=== PATIENT | male | born 1960 | race Caucasian/White ===

== ENCOUNTER → 2016-06-20 | Outpatient (CLI) | payer OTHER ==
[~2016-06-20] MED LIST: ALPR0.25 PO; ASCO100T4 PO; ASPI81TA50 PO; ATOR10TA60 PO; CARV6.252 PO; CELE200C PO; CLOP75TA PO; CYCL10TA2 PO; DULO30CA2 PO; DULO60CA6 PO; ESZO3TAB9 PO; GABA-586 PO; INSU100I13 SQ; INSU100V8 SQ; LOSA100T6 PO; LOSA50TA6 PO; MELO-156 PO; METF10002 PO; METO25TA9 PO; MULT-18 PO; NITR0.4T SL; OXYC-244 PO; OXYC-323 PO; OXYC30TA PO; PIOG30TA20 PO; SIMV40TA3 PO; SITA100T PO; TEST75PE6 IL; TIZA4CAP PO; VALS1TAB6 PO
--- NOTE | 2016-06-20 16:02 | PAIN ---
DATE OF SERVICE: 06/20/2016 PROGRESS NOTE DIAGNOSES: Lumbar radiculopathy with lumbar degenerative disk disease and post-lumbar laminectomy syndrome. HISTORY OF PRESENT ILLNESS: The patient is a 55-year-old male who returns for followup status post medication management with oxycodone. The patient is taking a fourth to a half of a tablet at a time during the day, only taking 50 tablets per month. We have been working on him for several months now with decreasing his rate and decided that we will continue this as well, decreasing the amount that he is taking even though it is not a large amount. The patient would like to be off these as well as he feels that it make him somewhat fatigued and tired in combination with his blood pressure medication and Cymbalta. The patient reports otherwise doing fairly well, good control of pain in his low back and left hip and leg, about 80% decreased with the medication and without side effects. The patient reports it is about 3 on a scale of 10 at its worse, is aching and throbbing. He has had quite a bit of stress at work as he usually does and we discussed this in some detail today as well as, biofeedback mechanisms, stretching and meditations, which he is doing all of these. Also, the patient is still seeing Dr. Tushar Zhang at the [facility], which he feels has been very helpful with psychological decrease in dependency on the pain medicine as well. The patient reports otherwise no new motor or sensory deficits, no new bowel or bladder incontinence. No side effects with medication. The patient has had appropriate K-TRACS reporting and appropriate urinalysis to date as well. We will get a urinalysis today on routine screening once again. The patient's old chart was reviewed as his current medication regimen updated. Current review of systems updated today as well. PHYSICAL EXAMINATION: VITAL SIGNS: The patient's blood pressure is 134/83, pulse is 75, respirations 18, temperature 97.7 degrees Fahrenheit, height is 5 feet 11 inches, and weighs 228 pounds. GENERAL: The patient is awake, alert, oriented, appropriate, very pleasant demeanor. HEENT: Shows normocephalic, atraumatic. NECK: Shows anterior throat supple without palpable lymphadenopathy noted. Swallow reflex is symmetrical. CHEST: Shows normal on inspection. Breath sounds are clear to auscultation bilaterally. HEART: Shows S1 and S2 clear. ABDOMEN: Soft, nontender, and nondistended. BACK: Shows midline spine with well-healed surgical scar in the lumbar distribution. There is some moderate tenderness with palpation in the lumbar paraspinous musculature bilaterally, but without significant radiation. EXTREMITIES: The patient's lower extremities show deep tendon reflexes 1+ in the patellar tendons. Motor exam is strong with 5/5 dorsiflexion, extension and equal. PLAN: Options were discussed with the patient. We will refill the patient's oxycodone at 50 tablets per month for 2 months periods, once again the patient was instructed as to decreasing the amount of medication, a small amount currently and he would like to be off these completely eventually and we will work with him to get this reduced further. 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 The patient will follow up in approximately 2 months or sooner if necessary and was given instruction as well as side effects to be aware with his medications. MANUEL MICHAEL MD DR: EDWAR/víctor JOB#: [id number] / [id number]
== END | disposition home or self-care (01) ==
LOC: PNCL 07:38
PROVIDERS: ATTEND Anesthesiology
DX: M51.16 Intervertebral disc disorders with radiculopathy, lumbar region (principal); M96.1 Postlaminectomy syndrome, not elsewhere classified
CPT/HCPCS: 99212

== ENCOUNTER → 2016-08-15 | Outpatient (CLI) | payer OTHER ==
[~2016-08-15] MED LIST changes: +IOHEXOL 180 MG/ML 10 ML VIAL. ONE; -VALS1TAB6 PO; +VALS1TAB8 PO; +methylPREDNISolone ACETATE 40 MG/ML VIAL. ONE; +methylPREDNISolone ACETATE 80 MG/ML VIAL. ONE
--- NOTE | 2016-08-16 00:28 | PAIN ---
DATE OF SERVICE: 08/15/2016 DIAGNOSES: Lumbar radiculopathy with lumbar degenerative disk disease and lumbar post-laminectomy syndrome. HISTORY OF PRESENT ILLNESS: The patient is a 55-year-old male who returns for followup status post medication management with oxycodone 5 mg, the patient has been breaking the tablets in half to fourth with good results, still having some emotional stress and anxiety which is causing his physical pain to be slightly increased, but is doing better overall with breaking the tablets down and trying to take less and less. The patient did have good week about 2 weeks ago, he reports, where he only needed to take one to one and half tablets a day and was very pleased with this, but has had some increased stress at work again lately and has been going back up to two to two and half tablets on occasion. The patient reports he is still interested in doing physical therapy, which he has been doing. We did get him some new orders today to follow up with this, as he would like to get in to some weight loss program as well. He is still seeing Dr. Tushar Zhang for some emotional support and counseling and reports that this is effective and helpful also. The patient reports no new motor or sensory deficits. He is still complaining of pain in the low back and left lower extremity, mostly in the posterior gluteus and thigh, intermittent in intensity, but present. The patient rates his pain as a 2 on a scale of 10, described as aching and dull with some radiating pain in the neck and worse with physical activity, worse with emotional stress. PHYSICAL EXAMINATION: VITAL SIGNS: The patient's blood pressure 123/75, pulse 75, respirations 18, temperature 98.1 degrees Fahrenheit, height is 5 feet 11 inches, weight is 222 pounds. GENERAL: The patient is awake, alert, oriented, appropriate, has very pleasant demeanor. HEENT: Shows normocephalic, atraumatic. Extraocular movements are intact and symmetrical. Oral cavity shows mucous membranes are moist and pink. Dentition is intact. NECK: Shows anterior throat supple without palpable lymphadenopathy noted. Swallow reflex is symmetrical. CHEST: Shows normal on inspection. Breath sounds are clear to auscultation bilaterally. HEART: Shows S1 and S2 clear. No murmurs are auscultated. ABDOMEN: Obese, soft, nontender, nondistended. No palpable organomegaly is noted. No rebound or guarding demonstrated. BACK: The patient's back shows spine grossly in the midline, well-healed surgical scars noted in the lumbar distribution and lumbar paraspinous musculature symmetrical in appearance. With palpation, muscle girth is normal with no specific radiation and no trigger points. No tenderness over the sacrum or sacroiliac regions. The patient shows good rotational motion of the lumbar spine both laterally as well as extension and flexion without significant pain reported. EXTREMITIES: Lower extremities showed deep tendon reflexes at 1+ in the patellar and tendo calcaneus tendons are equal. Motor exam is strong with 5/5 dorsiflexion and extension. PLAN: Options were discussed with the patient and the patient's old chart was reviewed as his current medication regime and updated. Current review of systems updated today as well and refilled the patient's oxycodone at 5 mg to take up to 5 tablets if necessary; however, the patient has been breaking them down, we discussed in great detail reducing the amount of medication and using them as sparingly as possible, although he is on a low dose of this, he would like to be off them completely eventually, and we will continue to work with him in this regard. Also, we will send physical therapy orders for strengthening and stretching exercises, posture retraining, muscular retraining in the back and core as well and some weight loss advice as the patient is interested in this as well. We will have the patient follow up in 90 days or sooner if necessary. The patient is given prescription for 90 days with instructions and side effects of the medication to be aware of. Also, we discussed testosterone levels, the patient has been following this up significantly and consistently with his primary care physician and does get some testosterone injections and will follow up with his primary care physician regarding some increased fatigue he has been having lately as well. MANUEL MICHAEL MD DR: EDWAR/víctor JOB#: [id number] / [id number]
== END | disposition home or self-care (01) ==
LOC: PNCL 07:39
PROVIDERS: ATTEND Anesthesiology
DX: M51.16 Intervertebral disc disorders with radiculopathy, lumbar region (principal); M96.1 Postlaminectomy syndrome, not elsewhere classified
CPT/HCPCS: 99212; J1030; J1040

== ENCOUNTER → 2016-11-11 | Outpatient (CLI) | payer OTHER ==
[~2016-11-11] MED LIST changes: -IOHEXOL 180 MG/ML 10 ML VIAL. ONE; +METF-620 PO; -METF10002 PO; -methylPREDNISolone ACETATE 40 MG/ML VIAL. ONE; -methylPREDNISolone ACETATE 80 MG/ML VIAL. ONE
--- NOTE | 2016-11-12 04:14 | PAIN ---
DATE OF SERVICE: PROGRESS NOTE FOR PAIN CLINIC DIAGNOSES: Lumbar radiculopathy with lumbar degenerative disk disease and post-lumbar laminectomy syndrome. HISTORY OF PRESENT ILLNESS: The patient is a 56-year-old male, who returns for followup status post medication management with oxycodone at 5 mg. The patient is taking between one and a half and one and three-quarter tablets each 4-6 hours depending on his pain level at home. The patient has been doing this for some time now. We have weaned him down to just 50 tablets a month and he is doing a good job of breaking these in the halves and quarters, to take only sparingly as he can; however, he reports that he has had a significantly painful last month or so. He had a new riding insole tape stitcher uco, which aggravated his back pain significantly. He also does some ____, which is aggravating the back and was in one of his coworkers' vehicles when she____ had a very stiff suspension and this aggravated his back pain as well. He is having traveling pain down his left hip and leg, as well as in the left groin and into the scrotal region as well - somewhat of that when he had prior to his lumbar surgery. The patient reports that it is not there constantly, but it is becoming much more aggravating and he is afraid to do any type of activity currently because that the pain has returned. The patient reports no deficits, but significant pain in the back and left leg as he has had previously with a radiating fashion. The patient reports otherwise with his pain medication, he does well when he takes it with about 80% or better improvement, although he is struggling with the idea that he is more psychologically dependent on the pain medication and physically, it does relieve the pain by his report to a significant extent. The patient also sees Dr. Tushar Zhang at [facility] and he is following up with him on 11/14/2016 in approximately 3 days as well. The patient has been seeing a physical therapist and doing some core exercise, strengthening, and stretching, which he reports seems to help the pain, but only temporarily. PHYSICAL EXAMINATION: VITAL SIGNS: Today, the patient's blood pressure is 126/81, pulse 85, respirations 20, temperature 98.0 degrees Fahrenheit. Height is 5 feet 11 inches and weight is 222 pounds. GENERAL: The patient is awake, alert, oriented, and appropriate and has a very pleasant demeanor. HEENT: Head shows normocephalic, atraumatic. Extraocular movements are intact and symmetrical. Oral cavity - mucous membranes are moist and pink. Dentition is intact. NECK: Shows anterior throat supple without palpable lymphadenopathy noted. Swallow reflex is symmetrical. CHEST: Shows normal on inspection. Breath sounds are clear to auscultation bilaterally. HEART: Shows S1 and S2 clear. No murmurs auscultated. ABDOMEN: Obese, soft, nontender, and nondistended. No palpable organomegaly is noted. No rebound or guarding demonstrated. BACK: Shows spine grossly midline. Normal-appearing thoracic kyphosis. Lumbar lordotic curvature is mildly flattened with some previously well-healed surgical scarring noted. Lumbar paraspinous musculature shows symmetrical on inspection. With palpation, shows moderate tenderness throughout the upper, middle and lower distributions with very firm musculature bilaterally, more so than on previous exam with very tight musculature, which is moderately tender, but only diffusely and without radiation throughout. No tenderness over the spinous processes, sacrum, or sacroiliac regions. The patient does show good rotational motion both laterally, as well as extension and flexion without significant increase in pain in the lumbar spine. EXTREMITIES: Lower extremities show deep tendon reflexes at 1+ in the patellar and tendocalcaneus tendons. Motor exam remain strong with 5/5 dorsiflexion, extension, quadriceps, and hamstring flexion. PLAN: Options were discussed with the patient. The patient's old chart was reviewed and his current medication regimen was updated. Current review of systems updated today as well. We will refill the patient's oxycodone at 5 mg with only 50 tablets per month for the next 2 months. Also discussed that he has had two Medrol Dosepaks from his primary care physician in the last 6-7 weeks, and while it has helped significantly initially, the pain returns once these are completed. We will increase his Celebrex to twice daily for the next 1 week and also increase his gabapentin to 300 mg twice daily. The patient was given instruction as well as side effects to be aware of with all his medications and will follow up in approximately 2 months or sooner if necessary. We did discuss the possibility of a caudal epidural steroid injection if the radicular pain remains after the next week with medication increase and he will call the clinic to notify us if that is the case next week. MANUEL MICHAEL MD DR: EDWAR/nts JOB#: [id number] / [id number]
== END | disposition home or self-care (01) ==
LOC: PNCL 11:19
PROVIDERS: ATTEND Anesthesiology
DX: M51.16 Intervertebral disc disorders with radiculopathy, lumbar region (principal); M96.1 Postlaminectomy syndrome, not elsewhere classified
CPT/HCPCS: 99212

== ENCOUNTER → 2016-12-30 | Outpatient (CLI) | payer OTHER ==
[~2016-12-30] MED LIST changes: +ESZO3TAB28 PO; -ESZO3TAB9 PO; -MELO-156 PO; +MELO7.5T29 PO; -OXYC-244 PO; +OXYC-327 PO; -PIOG30TA20 PO; +PIOG30TA41 PO
--- NOTE | 2016-12-31 02:23 | PAIN ---
DATE OF SERVICE: 12/30/2016 PROGRESS NOTE FOR PAIN CLINIC DIAGNOSES: Lumbar radiculopathy with lumbar degenerative disk disease and post lumbar laminectomy syndrome. HISTORY OF PRESENT ILLNESS: The patient is a 56-year-old male who returns for followup status post medication management with oxycodone. We have been reducing his amount daily and he has been cutting the pills into fourths and halves, taking about 1-1/2 tablets a day on average. The patient reports he has been trying to get it down and he wants to get the medication out of his regimen for good eventually. The patient reports he is still seeing Dr. Zhang for some psychosocial counseling and pain management as well and he reports that he does feel that this is helpful. The patient reports his pain is about a 5 on a scale of 10 at the worst, and a 3 on an average, it is a 3 today. The patient reports it is in the low back radiating to the posterior gluteus, posterior thigh, is aching and constant. The patient reports he is sleeping well at night, however. He is feeling much better with sitting or lying down. It is worse when he is on his feet, walking or standing for more than about 30-40 minutes. The patient reports otherwise it is somewhat tolerable with the medication, reports about a 75% improvement with the medication itself, again wishing to decrease the amount taken. PHYSICAL EXAMINATION: VITAL SIGNS: Today, blood pressure 122/84, pulse 67, respirations 18, temperature 97.7 degrees Fahrenheit, height is 5 feet 11 inches, weighs 227 pounds. GENERAL: The patient is awake, alert, oriented, appropriate, very pleasant demeanor. HEENT: Head is normocephalic, atraumatic. Extraocular movements are intact, symmetrical. Oral cavity, mucous membranes are moist and pink. Dentition is intact. NECK: Shows anterior throat supple without palpable lymphadenopathy noted. Swallow reflex is symmetrical. CHEST: Shows normal on inspection. Breath sounds are clear to auscultation bilaterally. HEART: Shows S1 and S2 clear. No murmurs auscultated. BACK: The patient's back shows spine grossly in the midline. Well-healed surgical scars noted in the lumbar distribution. The patient shows no tenderness over the sacrum and sacroiliac regions, but shows good rotation and motion both laterally as well as extension and flexion of lumbar spine without difficulty. EXTREMITIES: Lower extremities, showed deep tendon reflexes 1+ in the patellar and tendo calcaneus tendons are equal. Motor exam is strong with 5/5 dorsiflexion, extension, quadriceps and hamstring flexion. Pulses are 1+ posterior tibial and dorsalis pedis pulses. Options were discussed with the patient. The patient's old chart was reviewed as his current medication regimen updated. Current review of systems updated today as well. We will decrease the patient's monthly amount of medications to 40 tablets instead of 50. The patient will divide these up again and we will slowly wean this down. We will have him return in about 60 days and plan on further reduction at that time. The patient was counseled as to medication regimen as well as side effects to be aware of and follow up as scheduled. MANUEL MICHAEL MD DR: EDWAR/víctor JOB#: [id number] / [id number]
== END | disposition home or self-care (01) ==
LOC: PNCL 10:42
PROVIDERS: ATTEND Anesthesiology
DX: M54.16 Radiculopathy, lumbar region (principal); M47.896 Other spondylosis, lumbar region; M96.1 Postlaminectomy syndrome, not elsewhere classified
CPT/HCPCS: 99212

== ENCOUNTER → 2017-02-24 | Outpatient (CLI) | payer OTHER ==
[~2017-02-24] MED LIST changes: +LINA5TAB4 PO; +METO-239 PO; -METO25TA9 PO
--- NOTE | 2017-02-24 16:45 | PAIN ---
DATE OF SERVICE: 02/24/2017 DIAGNOSES: Lumbar radiculopathy with lumbar degenerative disk disease and lumbar post-laminectomy syndrome. HISTORY OF PRESENT ILLNESS: The patient is a 56-year-old male who returns for followup status post medication management with oxycodone 5 mg. The patient has been taking the medication and breaking them down into a fourth or halves and only taking 40 tablets total each month. We have been trying to wean him down. He is still having some difficulty with this and is very self aware that he is mostly psychologically dependent on these and we have discussed this in much detail. He has also seen Dr. Ashvin Zhang for some biofeedback and psychiatric control and has another psychiatrist working with depression issues with the patient. The patient reports that otherwise, he is still having some pain in low back radiating to the posterior gluteus in left side and left leg, although it is a 5 on a scale of 10 at its worst, 3 on average, and a 1 on a scale of 10 at its least and is 1 today. The patient reports it can be a sharp pain, but it is only mainly dull and aching in the low back and left leg. The patient reports no new motor or sensory deficits. No new bowel or bladder incontinence or other complaints. PHYSICAL EXAMINATION: VITAL SIGNS: Today, the patient's blood pressure is 134/86, pulse 65, respirations 18, temperature 97.8 degrees Fahrenheit, height is 5 feet 11 inches, weighs 225 pounds. GENERAL: The patient is awake, alert, oriented, appropriate, very pleasant demeanor. HEENT: Head shows normocephalic, atraumatic. Extraocular movements are intact and symmetrical. Oral cavity, mucous membranes are moist and pink. Dentition is intact. NECK: Shows anterior throat supple without palpable lymphadenopathy noted. Swallow reflex is symmetrical. CHEST: Shows normal on inspection. Breath sounds are clear to auscultation bilaterally. HEART: Shows S1 and S2 clear. ABDOMEN: Soft, obese, nontender, nondistended. BACK: Shows spine grossly in midline. Well healed surgical scar is noted in the lumbar distribution. Lumbar paraspinous musculature shows some moderate tenderness to palpation, but only diffusely without radiation. Lower extremities show deep tendon reflexes at 1+ in the patellar and tendo calcaneus tendons. Motor exam is strong with 5/5 dorsiflexion and extension. Options were discussed with the patient and the patient's old chart was reviewed as his current medication regimen and updated. Current review of systems is updated today as well. We will maintain #40 tablets of oxycodone 5 mg for 1 month prescription x 2 months written. The patient was counseled again as to decreasing the medication and we talked about various other techniques. He is currently doing yoga, which he feels is helpful and we will eventually substitute these other modalities and physical therapies biofeedback for the pain medication itself as the patient appears dedicated in doing this. He has also had appropriate K-TRACS reporting today and appropriate urinalysis to date. Again encouraged him to maintain his hydration with medication and diet, also talked about weight loss. He has been doing some pool exercises as well and encouraged him to continue with these also. The patient will follow up in approximately 2 months or sooner as necessary. MANUEL MICHAEL MD DR: EDWAR/víctor JOB#: [id number] / [id number]
== END | disposition home or self-care (01) ==
LOC: PNCL 11:16
PROVIDERS: ATTEND Anesthesiology
DX: M51.16 Intervertebral disc disorders with radiculopathy, lumbar region (principal); M96.1 Postlaminectomy syndrome, not elsewhere classified; F32.9 Major depressive disorder, single episode, unspecified
CPT/HCPCS: 99212

== ENCOUNTER → 2017-04-21 | Outpatient (CLI) | payer OTHER ==
--- NOTE | 2017-04-24 10:08 | PAIN ---
DATE OF SERVICE: 04/21/2017 DIAGNOSES: Lumbar radiculopathy with lumbar degenerative disk disease and post-lumbar laminectomy syndrome. HISTORY OF PRESENT ILLNESS: The patient is a 56-year-old male who returns for followup status post medication management with oxycodone at 5 mg. The patient has been working on decreasing the medication, is doing a very good job, trying to get down. He is also doing some psychiatric counseling as well as physical therapies and started yoga since his last visit and reports he is doing quite well. He still breaking the tablets into halves and fourths and taking up to 1-1/2 tablets a day at maximum. The patient reports he has had several episodes where he was able to skip one of the quarter or half tablet doses and he feels good about this as he knows he has some psychological component to the medication need and desire and we have been working with him to very slowly reduce this and he is so far coming along with good progress. The patient reports no side effects with medication and his pain is pretty well controlled approximately 75% or so with the medication, but again would like to get off of this and we will help him achieve this goal. The patient reports still some pain in the low back, bilateral lower extremities, more so on the left side. Rates as a 4 on a scale of 10 at its worst, 2 on average and a 2 at its least and is a 2 today. The patient reports it as aching and dull. Can be radiating, but usually just dull, aching across the low back, sometimes tight, but rarely with a shooting pain. The patient reports it feels worse with standing, walking, changing positions, sitting upright for more than about an hour or so, but better with lying down and generally with sitting, it relieved to some extent. In anyway, the patient sleeps full at night. Does not awaken him from sleep. Reports no new motor or sensory deficits, no new bowel or bladder incontinence or other complaints. No side effects with the medication. PHYSICAL EXAMINATION: VITAL SIGNS: The patient's blood pressure is ____, respirations are 16, temperature is 98.2 degrees Fahrenheit. Height is 5 feet 11 inches, weight is 227 pounds. GENERAL: The patient is awake, alert, oriented, appropriate, very pleasant demeanor. HEENT: Shows normocephalic, atraumatic. Extraocular movements are intact and symmetrical. Oral cavity shows mucous membranes are moist and pink. Dentition is intact. NECK: Shows anterior throat is supple without palpable lymphadenopathy noted. Swallow reflex is symmetrical. CHEST: Shows normal with inspection. Breath sounds are clear to auscultation bilaterally. HEART: Shows S1 and S2 clear. No murmurs auscultated. ABDOMEN: Soft, nontender, nondistended. No palpable organomegaly is noted. No rebound or guarding demonstrated. MUSCULOSKELETAL: Back shows spine grossly in the midline. Normal appearing thoracic kyphosis, mild flattening of lumbar lordotic curvature. Well-healed surgical scar in the lumbar distribution. Lumbar paraspinous muscles show symmetrical on inspection, with palpation shows some moderate tenderness but only diffusely in the lower lumbar distribution and only to a mild to moderate extent. No radiation of pain, no tenderness over the sacrum or sacroiliac regions. Lower extremities show deep tendon reflexes at 1+ in the patellar and tendo-calcaneus tendons and are equal. Motor exam is strong with 5/5 dorsiflexion, extension, quadriceps and hamstring flexion. Peripheral pulses are 1+, posterior tibial. No peripheral edema is noted bilaterally in the lower extremities. PLAN: Options were discussed with the patient and the patient's old chart was reviewed as his current medication regimen updated. Current review of systems updated today as well and we will refill the patient's medication oxycodone 5 mg at 40 tablets for a month with a 2-month prescription given. The patient was given instruction as well as side effects to be aware of with medication, again actively work on reducing the medication amount and increase activity with yoga and physical therapy exercises, which he is currently doing. The patient will follow up in approximately 2 months as scheduled or sooner if necessary. MANUEL MICHAEL MD DR: EDWAR/víctor JOB#: [id number] / [id number]
== END | disposition home or self-care (01) ==
LOC: PNCL 10:45
PROVIDERS: ATTEND Anesthesiology
DX: M51.16 Intervertebral disc disorders with radiculopathy, lumbar region (principal)
CPT/HCPCS: 99212

== ENCOUNTER → 2017-06-16 | Outpatient (CLI) | payer OTHER | END | disposition home or self-care (01) | LOC: PNCL 11:00 | DX: M51.16 Intervertebral disc disorders with radiculopathy, lumbar region (principal) | CPT/HCPCS: 99212 ==

== ENCOUNTER → 2017-08-11 | Outpatient (CLI) | payer OTHER | END | disposition home or self-care (01) | LOC: PNCL 10:56 | DX: M51.16 Intervertebral disc disorders with radiculopathy, lumbar region (principal) | CPT/HCPCS: 99212 ==

== ENCOUNTER → 2017-10-13 | Outpatient (CLI) | payer OTHER | END | disposition home or self-care (01) | LOC: PNCL 07:54 | DX: M51.16 Intervertebral disc disorders with radiculopathy, lumbar region (principal) | CPT/HCPCS: 99212 ==

== ENCOUNTER → 2017-12-28 | Outpatient (CLI) | payer OTHER | END | disposition home or self-care (01) | LOC: PNCL 07:32 | DX: M51.16 Intervertebral disc disorders with radiculopathy, lumbar region (principal); F32.9 Major depressive disorder, single episode, unspecified | CPT/HCPCS: 99212 ==

== ENCOUNTER → 2018-02-08 | Outpatient (CLI) | payer OTHER ==
[~2018-02-08] MED LIST changes: -METF-620 PO; +METF10003 PO
--- NOTE | 2018-02-08 11:30 | PAIN ---
DATE OF SERVICE: 02/08/2018 PROGRESS NOTE FOR PAIN CLINIC DIAGNOSES: Lumbar radiculopathy with lumbar degenerative disk disease and post-lumbar laminectomy syndrome. HISTORY OF PRESENT ILLNESS: The patient is a 57-year-old male who returns for followup status post medication management and physical therapy for his low back and left lower extremity pain. HISTORY OF PRESENT ILLNESS: The patient reports he has been doing fairly well. He did see an outside pain treatment facility and had a lumbar epidural steroid injection, which he reports was not helpful as about 2 weeks ago, the patient reports he also had a myelogram, which he has report with him today showing no significant change from exam of 2013 with some end-plate osteophytic ridging extending in the medial left neural foramen at L5-S1 with facet spurring but again similar to prior exam without significant change. The patient reports still some pain in the low back and left leg but it only worked occasionally. The patient reports it is better with the therapies, has been doing some water therapy as well as regular physical therapy, stretching and strengthening and some yoga exercises, which seemed to help but still having some significant pain. The patient reports the pain is a 5 on a scale of 10 at its worst, 3 on average, 1 at its least and is a 3 today. The patient reports it is a burning, aching, radiating, becoming more constant with activity. The patient reports no loss of motor function and no bowel or bladder incontinence or other complaints. PHYSICAL EXAMINATION: VITAL SIGNS: The patient's blood pressure is 117/78, pulse 83, respirations 18, temperature 97.8 degrees Fahrenheit, 5 feet 11 inches and weight is 214 pounds. GENERAL: The patient is awake, alert, oriented, appropriate, very pleasant demeanor. HEENT: Head shows normocephalic and atraumatic. Extraocular movements are intact and symmetrical. Oral cavity: Mucous membranes moist and pink. Dentition is intact. NECK: Shows anterior throat supple without palpable lymphadenopathy noted. Swallow reflex symmetrical. CHEST: Shows normal on inspection. Breath sounds clear to auscultation bilaterally. HEART: Shows S1 and S2 clear. No murmurs auscultated. ABDOMEN: Obese, soft, nontender and nondistended. No palpable organomegaly is noted. No rebound or guarding demonstrated. BACK: The patient's back shows spine grossly in the midline, slight flattening of the lumbar lordotic curvature with some mild flattening and well-healed surgical scarring noted. Lumbar paraspinous muscle shows symmetrical on inspection, on palpation shows some moderate tenderness bilaterally, only diffusely without radiation. The patient has good rotational motion both laterally as well as extension and flexion without significant pain reported. No tenderness over the sacrum or sacroiliac regions. EXTREMITIES: Lower extremities show deep tendon reflexes 1+ in the patellar and tendo-calcaneus tendons. Motor exam is approximately 4 on a scale 5 but symmetrical and equal with dorsiflexion, extension, quadriceps and hamstring flexion. Peripheral pulses are 1+ posterior tibia. No peripheral edema is noted bilaterally. Options were discussed with the patient. The patient's old chart was reviewed as well as his current medication regimen updated. Current review of systems updated today as well and we will continue with physical therapy recommendations. Also, we discussed weight loss strategies with the patient. He will continue with these as well. We also discussed possible interventional techniques although he just had another injection without significant improvement. We would like to hold on this and also we discussed possible neurosurgical evaluation but without significant change or without any motor loss or increasing portion of pain is a bit early to discuss surgical options and he would like to wait on this as long as possible. We will continue to encourage him to maintain physical therapy, water therapy especially and weight loss techniques as well. The patient will follow up at this time on as needed basis. MANUEL MICHAEL MD DR: EDWAR/víctor JOB#: [id number] / [id number]
== END | disposition home or self-care (01) ==
LOC: PNCL 07:34
PROVIDERS: ATTEND Anesthesiology
DX: M51.16 Intervertebral disc disorders with radiculopathy, lumbar region (principal)
CPT/HCPCS: 99212

== ENCOUNTER → 2018-08-29 | Outpatient (CLI) | payer OTHER ==
[~2018-08-29] MED LIST changes: +CARV6.2511 PO; -CARV6.252 PO; -GABA-586 PO; +GABA300C18 PO; +LINA5TAB PO; -LINA5TAB4 PO; +LOSA-73 PO; +LOSA100T14 PO; -LOSA100T6 PO; -LOSA50TA6 PO; -METF10003 PO; +METF10007 PO; -OXYC-323 PO; -OXYC-327 PO; +OXYC1TAB15 PO; +OXYC1TAB19 PO; -OXYC30TA PO; +OXYC30TA3 PO
--- NOTE | 2018-08-29 15:22 | PAIN ---
DATE OF SERVICE: 08/29/2018 DIAGNOSES: Lumbar radiculopathy with lumbar degenerative disk disease and lumbar post-laminectomy syndrome. HISTORY OF PRESENT ILLNESS: The patient is a 57-year-old male who returns for followup status post previous medication management and therapy. The patient was last seen 02/08/2018. The patient reports he has been doing fairly well, but his right knee is causing him significant pain. He has had some meniscus worked on in the past and has not had a followup with his orthopedist in some time. The patent reports his pain in back has exacerbated significantly and appears to be worse with walking and standing, better with sitting or lying down. The patient reports it is in the low back, radiating to the mid back, upper back with muscular component as well as the spasticity, is still taking muscle relaxant as well as Celebrex, which does help, but only to about 30% level. The patient reports he has some dry needling done with his physical therapy and continues some physical therapy, but no pool therapy lately. The patient reports it is an aching pain shooting and seems to be getting worse. The patient reports it is a 7 on a scale of 10 at its worst, 4 on average and 3 at its least and is a 4 today. The patient reports no new motor or sensory deficits, better with lying down, does not awaken him from sleep at night. PHYSICAL EXAMINATION: VITAL SIGNS: The patient's blood pressure 122/81, pulse 81, respirations 18, temperature 97.9 degrees Fahrenheit. Height is 5 feet 11 inches, weight is 205 pounds. GENERAL: The patient is awake, alert, oriented, appropriate, very pleasant demeanor. HEENT: Head is normocephalic, atraumatic. Extraocular movements are intact and symmetrical. Oral cavity: Mucous membranes moist and pink. Dentition intact. NECK: Shows anterior throat supple without palpable lymphadenopathy noted. Swallow reflex symmetrical. CHEST: Shows normal with inspection. Breath sounds clear to auscultation bilaterally. HEART: Shows S1, S2 clear. No murmurs auscultated. ABDOMEN: Soft, nontender, nondistended. No palpable organomegaly is noted. No rebound or guarding demonstrated. BACK: Shows spine grossly in the midline. Normal appearing thoracic kyphosis and some minor flattening of lumbar lordotic curvature. Well-healed surgical scar noted. Lumbar paraspinous muscle shows symmetrical on inspection, on palpation shows some moderate tenderness in the low lumbar distribution, but only diffusely without radiation. The patient shows good rotational motion of lumbar spine, both laterally as well as extension and flexion without significant difficulty. EXTREMITIES: The patient's lower extremities show deep tendon reflexes 1+ in the patellar and tendo calcaneus tendons. Motor exam is strong with approximately 4 on a scale of 5, but equal and symmetrical dorsiflexion, extension, quadriceps and hamstring flexion bilaterally. Peripheral pulses are 1+ posterior tibia. No peripheral edema is noted. The patient's right knee shows some moderate tenderness with palpation, mainly the component over the medial collateral ligament, but also over the inferior patellar tendons as well. The patient has good range of motion, however, without ratcheting or crepitus of the joint with range. Options were discussed with the patient. The patient's old chart was reviewed, as his current medication regimen updated. Current review of systems updated today as well, and we will refer the patient for orthopedic evaluation for a second opinion regarding his right knee and any interventional techniques that may be required or necessary. Also, we will try Flector patch on the right knee itself. The patient was given instruction as well as side effects to be aware of with the medication. The patient will follow up in approximately 1 month or sooner if necessary. The patient was given instruction as well as side effects to be aware of with the patch and will follow up as scheduled. MANUEL MICHAEL MD DR: EDWAR/víctor JOB#: [id number] / [id number]
== END | disposition home or self-care (01) ==
LOC: PNCL 08:40
PROVIDERS: ATTEND Anesthesiology
DX: M51.16 Intervertebral disc disorders with radiculopathy, lumbar region (principal); M96.1 Postlaminectomy syndrome, not elsewhere classified
CPT/HCPCS: G0463

== ENCOUNTER → 2019-02-26 | Outpatient (CLI) | payer OTHER ==
--- NOTE | 2019-02-26 09:12 | PAIN ---
DATE OF SERVICE: 02/26/2019 PROGRESS NOTE FOR PAIN CLINIC DIAGNOSES: Lumbar radiculopathy with lumbar degenerative disk disease and lumbar post-laminectomy syndrome. HISTORY OF PRESENT ILLNESS: The patient is a 58-year-old male who returns for followup, last seen on 08/29/2018. We tried some water therapy and physical therapy. The patient reports he did well with this, but the pain is returning after Labor Day weekend. He was doing some mowing and weed-eating for extended period and has some increased pain in the low back and into his left posterior hip and radiating into the gluteus and thigh. The patient reports it is worse with walking, standing, and changing positions, is a tight and constant pain in the low back, helped with muscle relaxers, also with stretching and ice application. The patient reports the pain is 7 on a scale of 10 at its worst over the past week, 5 on average, 4 at its least and is a 5 today. The patient reports no new motor or sensory deficits, no new changes. PHYSICAL EXAMINATION: VITAL SIGNS: The patient's blood pressure 120/64, pulse 68, respirations 18, temperature 98.0 degrees Fahrenheit. Height is 5 feet 11 inches, weight is 205 pounds. GENERAL: The patient is awake, alert, oriented, appropriate, very pleasant demeanor. HEENT: Head is normocephalic, atraumatic. Extraocular movements are intact and symmetrical. Oral cavity: Mucous membranes are moist and pink. Dentition is intact. NECK: Shows anterior throat is supple without palpable lymphadenopathy noted. Swallow reflex symmetrical. CHEST: Shows normal on inspection. Breath sounds are clear to auscultation bilaterally. HEART: Shows S1, S2 clear. No murmurs auscultated. ABDOMEN: Soft, nontender, nondistended. No palpable organomegaly is noted. No rebound or guarding demonstrated. BACK: Shows spine grossly in the midline. Normal appearing thoracic kyphosis and minor flattening of lumbar lordotic curvature. Well-healed midline surgical scar. Lumbar paraspinous muscle shows symmetrical on inspection, on palpation shows some moderate tenderness diffusely in the low lumbar distribution on the left greater than the right, also some moderate tenderness over the left sacroiliac region on the left, but not the right. The patient shows good rotational motion of lumbar spine without difficulty including extension, flexion and right and left lateral rotation. EXTREMITIES: Lower extremities show deep tendon reflexes 1+ in the patella and tendo calcaneus tendons. Motor exam is approximately 4 on a scale of 5, but equal and symmetrical dorsiflexion, extension, quadriceps and hamstring flexion. Peripheral pulses are 1+ in posterior tibia. No peripheral edema is noted bilaterally. PLAN: Options were discussed with the patient. The patient's old chart was reviewed and his current medication regimen updated. Current review of systems updated today as well. We will recommend stretching and strengthening exercises with the left sacroiliac region. We showed him some stretches to do today on his own. Also, we will try Minh 5 mg at bedtime, samples were given to the patient with instructions and side effects to be aware of, to see if this may decrease some of the inflammatory response as well. The patient will continue with stretching and strengthening exercises. We discussed water therapy repeat, would like to wait and see how he does on his own first. We will have the patient followup at this time on an as needed basis. MANUEL MICHAEL MD DR: EDWAR/víctor JOB#: [id number] / [id number]
== END | disposition home or self-care (01) ==
LOC: PNCL 08:06
PROVIDERS: ATTEND Anesthesiology
DX: M51.16 Intervertebral disc disorders with radiculopathy, lumbar region (principal); M96.1 Postlaminectomy syndrome, not elsewhere classified
CPT/HCPCS: G0463

== ENCOUNTER → 2019-11-22 | Outpatient (CLI) | payer OTHER ==
[~2019-11-22] MED LIST changes: -NITR0.4T SL; +NITR0.4T24 SL; +SIMV40TA18 PO; -SIMV40TA3 PO
--- NOTE | 2019-11-22 09:49 | PAIN ---
DATE OF SERVICE: 11/22/2019 PROGRESS NOTE FOR PAIN CLINIC DIAGNOSES: 1. Lumbar radiculopathy with lumbar degenerative disk disease and lumbar post-laminectomy syndrome. 2. Right knee joint pain with osteoarthritis. 3. Myofascial pain. HISTORY OF PRESENT ILLNESS: The patient is a 59-year-old male who returns for followup status post Medrol Dosepak 07/29. We also talked on the phone on 10/10 with a telemedicine visit discussing myofascial syndrome and the patient has been doing physical therapies and stretching and strengthening. He is still seeing a physical therapist regularly doing stretching and strengthening exercises at home and complains of low back pain that radiating to the left posterior gluteus, posterior thigh, mostly in the low back, somewhat worse on the left than the right. The patient reports it is a 5 on a scale of 10 at its worst in the past week, 5 on average, 1 at its least and is a 5 today. The patient reports it is worse with activity, walking, standing, changing positions, better with sitting or lying down, but sitting on a hard chair exacerbates the pain. The patient reports he can usually stretch it and feel somewhat better, but is not lasting very long, also physical therapy has been only very temporary. The patient reports it awakens him from sleep, but only very rarely. The patient reports no motor or sensory deficits, no bowel or bladder incontinence, but some radiating pain into the groin as well bilaterally. The patient reports the pain in the back is burning, sometimes radiating and constant, but not into the lower extremities, worse with rotation and motion, worse with flexion and not extension, right and left lateral rotation is neutral. PHYSICAL EXAMINATION: VITAL SIGNS: The patient's blood pressure is 118/76, pulse 70, respirations 18, temperature 97.9 degrees Fahrenheit, weight is 212 pounds. GENERAL: The patient is awake, alert, oriented, appropriate, very pleasant demeanor. HEENT: Shows normocephalic, atraumatic. Extraocular movements are intact and symmetrical. Oral cavity: Mucous membranes moist and pink. Dentition is intact. NECK: Shows anterior throat supple without palpable lymphadenopathy noted. Swallow reflex symmetrical. CHEST: Shows normal on inspection. Breath sounds are clear to auscultation bilaterally. No rales, rhonchi or wheezes auscultated. HEART: Shows S1, S2 clear. No murmurs auscultated. ABDOMEN: Obese, soft, nontender, nondistended. BACK: Shows spine grossly in the midline. Normal appearing thoracic kyphosis, some minor flattening of lumbar lordotic curvature. Well-healed surgical scarring noted. Lumbar paraspinous muscle shows symmetrical, but very firm with palpation and very tender with very firm rope-like musculature bilaterally in the upper, middle and lower distribution of paraspinous musculature, firm rope-like very consistent with trigger point areas of musculature, very tender to palpation without specific radiation. This is true bilaterally, somewhat worse on the right and the upper aspect in left and the lower aspect of the paraspinous muscles. No tenderness over the spinous processes, sacrum or sacroiliac regions. The patient shows good rotational motion of lumbar spine, both laterally again with more pain with forward flexion and extension and with stretching in the low back. EXTREMITIES: Lower extremities show deep tendon reflexes 1+ in the patellar and tendo calcaneus tendons. Motor exam is approximately 4 on a scale of 5, but equal and symmetrical dorsiflexion, extension, quadriceps and hamstring flexion. Peripheral pulses are 1+. No peripheral edema is noted bilaterally. Options were discussed with the patient. The patient's old chart was reviewed as his current medication regimen updated. Current review of systems updated today as well. We will preauthorize the patient for trigger point injections of the identified musculature in the lumbar paraspinous regions bilaterally as well as in the lower thoracic paraspinous musculature on the right. The patient in the meantime, we will try Medrol Dosepak, was instructed to continue with physical therapies, continue with home stretching and strengthening exercises as well and will follow up after Medrol Dosepak. We will plan on trigger point injections, thoracic and lumbar musculature bilaterally. MANUEL MICHAEL MD DR: EDWAR/víctor JOB#: [id number] / [id number]
== END ==
LOC: PNCL 08:38
PROVIDERS: ATTEND Anesthesiology
DX: M51.16 Intervertebral disc disorders with radiculopathy, lumbar region (principal); M25.561 Pain in right knee; M79.18 Myalgia, other site; M96.1 Postlaminectomy syndrome, not elsewhere classified; M17.11 Unilateral primary osteoarthritis, right knee
CPT/HCPCS: G0463

== ENCOUNTER → 2019-11-29 | Outpatient (CLI) | payer OTHER ==
[~2019-11-29] MED LIST changes: +BUPIVACAINE MPF 0.25% 10 ML VIAL. ONE; +methylPREDNISolone ACETATE 40 MG/ML VIAL. ONE
--- NOTE | 2019-11-29 21:31 | PAIN ---
DATE OF SERVICE: 11/29/2019 PROGRESS NOTE FOR PAIN CLINIC DIAGNOSES: 1. Lumbar radiculopathy with lumbar degenerative disk disease and lumbar post-laminectomy syndrome. 2. Right knee joint pain with osteoarthritis. 3. Myofascial pain. HISTORY OF PRESENT ILLNESS: The patient is a 59-year-old male who returns for followup status post previous Medrol management. 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 We discussed on the phone as well the other day some options and as he had recently completed a Medrol Dosepak, we did give him preauthorize have some trigger point injections as the patient is post-lumbar laminectomy with fusion and has responded well with these in the past. The patient reports pain is in the low back itself, more on the left than the right, but present bilaterally, burning, radiating, becoming more constant and aching with activity, difficulty sleeping, waking him from sleep frequently. The patient reports no loss of motor function; however, no bowel or bladder incontinence. Rates his pain as 7 on a scale of 10 at its worst over the past week, 4 on average, 2 at its least and is a 4 today. PHYSICAL EXAMINATION: VITAL SIGNS: The patient's blood pressure is 119/81, pulse 81, respirations are 16, temperature 97.7 degrees Fahrenheit, weight is 211 pounds, height is 5 feet 10 inches. GENERAL: The patient is awake, alert, oriented, appropriate, very pleasant demeanor. HEENT: Shows normocephalic, atraumatic. Extraocular movements are intact and symmetrical. Oral cavity: Mucous membranes moist and pink. Dentition is intact. NECK: Shows anterior throat supple without palpable lymphadenopathy noted. Swallow reflex symmetrical. CHEST: Shows normal on inspection. Breath sounds are clear bilaterally. HEART: Shows S1, S2 clear. No murmurs auscultated. ABDOMEN: Soft, nontender, nondistended. No palpable organomegaly is noted. No rebound or guarding demonstrated. BACK: Shows spine grossly in the midline. Normal appearing thoracic kyphosis and flattening of lumbar lordotic curvature. Well-healed surgical scarring noted. Lumbar paraspinous muscle shows symmetrical on inspection, on palpation shows some moderate tenderness diffusely, but only diffusely without significant radiation. The patient has good rotational motion of lumbar spine, both laterally as well as extension and flexion without significant difficulty. EXTREMITIES: The patient's lower extremities show deep tendon reflexes at 1+ patellar and tendo calcaneus tendons. Motor exam is approximately 4 on a scale of 5, but equal and symmetrical. The patient has had some significant tenderness with palpation in the lumbar paraspinous musculature as well as the thoracic paraspinous musculature with very firm rope-like musculature consistent with trigger point areas of musculature throughout the low thoracic and lumbar as well as into the gluteus more on the left than the right with significant tenderness in the superior medial gluteus, very firm rope-like musculature consistent with trigger point areas of tenderness, but without specific radiation. PLAN: Options were discussed with the patient. The patient's old chart was reviewed as his current medication regimen updated. Current review of systems updated today as well. We will proceed with trigger point injections today with risks discussed including, but not limited to bleeding, infection, possibility of intravascular injection sequelae, spread of local anesthetic and numbness, side effects of steroid medication and poor results regarding pain control. The patient understands and wished to proceed. The patient will return to clinic in approximately 4 weeks for followup. He was counseled on return appointment, activity level and side effects to be aware of. Also recommended increase stretching exercises and avoiding some of the more strenuous activities. The patient was found to have exacerbated the pain as well. DIAGNOSIS: Myofascial pain and low back pain. PROCEDURE: Trigger point injections, bilateral thoracic paraspinous muscles, bilateral lumbar paraspinous musculature, bilateral gluteus musculature under sterile prep and drape using local anesthetic. MEDICATION INJECTED: A total of 10 mL of 0.25% bupivacaine after negative aspiration at each injection site, 40 mg Depo-Medrol, total. CONDITION AT DISCHARGE: Stable. The patient tolerated the procedure well, had no complications. MANUEL MICHAEL MD DR: EDWAR/víctor JOB#: [id number] / [id number]
== END ==
LOC: PNCL 11:33
PROVIDERS: ATTEND Anesthesiology
DX: M79.18 Myalgia, other site (principal); M17.11 Unilateral primary osteoarthritis, right knee; M51.16 Intervertebral disc disorders with radiculopathy, lumbar region; M96.1 Postlaminectomy syndrome, not elsewhere classified
CPT/HCPCS: 20553; J1030; J3490

== ENCOUNTER → 2021-01-12 | Outpatient (CLI) | payer OTHER ==
[~2021-01-12] MED LIST changes: +ARIP2TAB3 PO; -BUPIVACAINE MPF 0.25% 10 ML VIAL. ONE; +CRESTOR40 MG PO; -methylPREDNISolone ACETATE 40 MG/ML VIAL. ONE
--- NOTE | 2021-01-12 10:10 | PDOC ---
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 lumbar degenerative disease lumbar postlaminectomy syndrome Right knee joint pain with osteoarthritis Myofascial pain History or Present Illness: HPI: 60-year-old male returns for follow-up last seen in November 2019 patient had lumbar epidural steroid injection with trigger point injection in the past with good results with pain returning now in the low back and left lower extremity patient reports that initially was doing much better with distance walking to his household activities returned to work activities with greater ease and comfort t ravel with greater ease about this year the patient reports he was helping his son cut some grass on a 0 turn mower and had some significant pain in the low back rating the posterior gluteus on the left posterior thigh posterior calf worse with walking now in standing and has been persistent I would try Medrol Dosepak with the patient we called in about a week ago which has been helpful but only by about 50% patient reports pain to 5 on scale 10 is worse over the past week 3 on average 1 its least is a 3 today patient ports aching radiating constant in the left lower extremity and the low back itself patient reports is been taking Tylenol as well as Celebrex but only with about a 20% decrease in pain patient reports she is currently doing some physical therapy stretching and strengthening exercises as well. Patient does awaken from sleep at night but only once a night". Patient reports no bowel or bladder incontinence. Physical Exam: VS: Blood pressure is 120/77 pulse 70 respirations 16 temperature 98.2 F height 5' 11 inches weight 225 pounds PE: PHYSICAL EXAMINATION: GENERAL: The patient is awake, alert, oriented, appropriate, very pleasant in demeanor HEENT: Shows normocephalic, atraumatic. Extraocular movements are intact and symmetrical. Oral cavity: Mucous membranes moist and pink. Dentition is intact. NECK: Shows anterior throat supple without palpable lymphadenopathy noted. Swallow reflex symmetrical. CHEST: Shows normal on inspection. Breath sounds are clear bilaterally, distant but no rales or rhonchi. HEART: Shows S1, S2 clear. No murmurs auscultated. ABDOMEN: Soft, nontender, nondistended, obese. No palpable organomegaly is noted. No rebound or guarding demonstrated. BACK: Shows spine grossly in the midline. Normal-appearing cervical lordotic curvature. There is slightly increased thoracic kyphosis, some minor flattening of the lumbar lordotic curvature. Lumbar paraspinous muscles show symmetrical on inspection, on palpation shows some moderate tenderness diffusely throughout the upper, middle and lower distribution of the paraspinous muscles, but without specific trigger points, without radiation of pain. The patient has good rotational motion of the lumbar spine, both laterally as well as extension and flexion without significant difficulty. No tenderness over the spinous processes, sacrum or sacroiliac regions. EXTREMITIES: Lower extremities show deep tendon reflexes 1+ in the patellar and tendo calcaneus tendons. Motor exam is 4 on a scale of 5 with right dorsiflexion, extension, quadriceps and hamstring flexion and 4/5 on the left. Peripheral pulses are 1+ posterior tibial. No peripheral edema is noted bilaterally. Lower extremities are warm and dry to touch, equal in color and appearance. SKIN: Shows warm and dry, good turgor. No edema. No sores, rashes or bruising throughout. Procedure: Procedure: Options were discussed with the patient. Patient's old chart was reviewed as w as his current medication regimen updated, and current review of systems updated today as well. We will add traction for lumbar spine to his current physical therapy orders, also discussed lumbar epidural steroid injection as he is unwell with these in the past patient has a significant high co-pay with insurance and he will look at getting that addressed first. Patient encouraged to maintain stretching strength exercises as well as with physical therapy and oral analgesics as currently. Medication Injected: Med Injected: None Condition at Discharge: Condition at Discharge: Condition at discharge is stable. MANUEL MICHAEL MD Jan 12, 2021 10:10
== END | disposition home or self-care (01) ==
LOC: PNCL 09:34
PROVIDERS: ATTEND Anesthesiology
DX: M51.16 Intervertebral disc disorders with radiculopathy, lumbar region (principal); M96.1 Postlaminectomy syndrome, not elsewhere classified; M17.11 Unilateral primary osteoarthritis, right knee; M79.18 Myalgia, other site; Z79.84 Long term (current) use of oral hypoglycemic drugs; Z79.899 Other long term (current) drug therapy
CPT/HCPCS: 99212; G0463